=== PATIENT | female | born 1935 | race African-American/Black ===

== ENCOUNTER 2016-10-29 18:39 | Inpatient (IN) ==
[2016-10-29] MEDS ORDERED: ASPIRIN 325 MG TABLET PO STA (19:25)
--- NOTE | 2016-10-29 19:39 | Emergency Department Note ---
Nahun Shearer Gwan, am scribing for, and in the presence of, Alfonso Gray MD 19 :31. Isaac Shearer Charles R, MD, personally performed the services described in this documentation, ascribed by Jessica Garnica in my presence, and it is both accurate and complete 939 . Arrival - Arrival Chief Complaint: Arrhythmia/Palpitations Stated Complaint: low heart rate ED Nursing Triage Note: Pt c/o Low heart rate (40's) with dizziness since yesterday. Mode of Arrival: Wheelchair Limitations: No Limitations Source: Patient, Family, Old Records Reviewed, RN Notes Reviewed Time Seen by Provider: 10/29/16 19:19 - History of Present Illness HPI Narrative: Patient is a 81 y/o female who presents to the ED with a c/o bradycardia and dizziness with an onset 2 days ago. Patient stated that her Home Health Nurse noted that her elevated BP and bradycardia 2 days ago. Patient continued to note that she began to have SOB today and as she was getting out of the bath tub she began to have an unsteady gait and dizziness prompting her to alert family and report to ED for further evaluation. Patient confirmed that she is beign followed by Dr. Almaguer and Dr. Watson. While in ED, patient stated that she no longer is having sxs. No other problems/complaints reported in ED. Onset (ago): day(s) Consistency: constant Severity: moderate Allergies/Adverse Reactions: Allergies Allergy/AdvReac Type Severity Reaction Status Date / Time No Known Allergies Allergy Verified 06/07/14 06:19 Home Medications: Home Medications Medication Instructions Recorded Confirmed Type Amitriptyline [Elavil] 50 mg PO BEDTIME 06/06/14 10/29/16 History Aspirin [Ecotrin] 81 mg PO DAILY 06/06/14 10/29/16 History Atorvastatin [Lipitor] 10 mg PO DAILY 06/06/14 10/29/16 History Benazepril [Lotensin] 5 mg PO DAILY 06/06/14 10/29/16 History Bromfenac Sodium [Prolensa] 1.6 ml RIGHT EYE DAILY 06/06/14 10/29/16 History Carvedilol 6.25 mg PO BID 06/06/14 10/29/16 History Cyanocobalamin (Vitamin B-12) 1,000 mcg IM DIRECTED 06/06/14 10/29/16 History [Cyanocobalamin Injection] Famotidine 20 mg PO DAILY 06/06/14 10/29/16 History Furosemide 60 mg PO DAILY 06/06/14 10/29/16 History Insulin Glargine [Lantus] 15 unit SUBCUT BEDTIME 06/06/14 10/29/16 History Magnesium Oxide [Magnesium] 664 mg PO DAILY 06/06/14 10/29/16 History Meloxicam 7.5 mg PO DAILY 06/06/14 10/29/16 History Metformin HCl [Metformin HCl ER] 1,000 mg PO BID 06/06/14 10/29/16 History Potassium Chloride 10 meq PO BID 06/06/14 10/29/16 History Review of System - Review of System 12 point system: reviewed and no additional remarkable complaints except as stated - Review of System Constitutional: Absent: chills, fever Eyes: Absent: discharge, pain Head/Ears/Nose/Throat: Absent: earache, epistaxis Respiratory: Absent: cough, respiratory distress, wheezing Cardiovascular: Present: as per HPI, other (slow heart beat). Absent: chest pain Gastrointestinal: Absent: abdominal pain, nausea, vomiting Neurological: Present: as per HPI, abnormal gait. Absent: headache, weakness Medical,Surgical,& Family Hx - Medical History Cardio: History of: Hypertension Neurology: No history of: Seizures HEENT: History of: Eye Problem Endocrine: History of: Diabetes Mellitus (IDDM), Dyslipidemia Gastrointestinal: History of: GERD Musculoskeletal: History of: Musculoskeletal Problems (ARTHRITIS) Other: History of: Skin Problems (HX MOLE REMOVED) - Surgical History HEENT Surgeries: Surgical HX of: Eye Surgery (RT EYE CATARACT/FOR LT 06/07/14) Abdominal Surgeries: Surgical HX of: Cholecystectomy Reproductive Surgeries: Surgical HX of;: Breast Surgery (RT LUMPECTOMY) - Social History Smoking Status: Never smoker Exam Vital Signs: Vital Signs Temperature 96.9 F L 10/29/16 19:15 Pulse Rate 47 L 10/29/16 19:15 Respiratory Rate 18 10/29/16 20:16 Blood Pressure 171/61 10/29/16 19:15 O2 Sat by Pulse Oximetry 98 10/29/16 19:15 - General General appearance: alert, in no apparent distress - Head Head exam: Present: atraumatic, normocephalic - Eye Eye exam: Present: normal appearance, PERRL, EOMI - ENT ENT exam: Present: normal oropharynx, mucous membranes moist, TM's normal bilaterally, normal external ear exam - Neck Neck exam: Present: full ROM, trachea midline. Absent: tenderness - Chest Chest inspection: Present: symmetric chest wall rise. Absent: tenderness - Respiratory Respiratory exam: Present: normal lung sounds bilaterally. Absent: respiratory distress - Cardiovascular Cardiovascular exam: Present: normal rhythm, bradycardia, normal heart sounds. Absent: murmur - Abdominal Exam Abdominal exam: Present: soft, normal bowel sounds. Absent: distention, tenderness - Extremities Exam Extremities exam: Present: full ROM, other (+1 edema bilateral lower extremities ). Absent: tenderness - Back Exam Back exam: Present: full ROM. Absent: tenderness - Neurological Exam Neurological exam: Present: alert, oriented X3, CN II-XII intact. Absent: motor sensory deficit - Psychiatric Psychiatric exam: Present: normal affect, normal mood - Skin Skin exam: Present: warm, dry, intact, normal color Course - Consultations Consultation #1: Dr Hernandez will admit for Dr Watson Time: 22:37 Consultation #2: Review EKG with Dr. Francis diving coach institutional commodity analyst. He agreed patient is trending towards a third-degree heart block. Patient blood pressure is normal she is asymptomatic states we can put on telemetry patient most likely require a pacemaker Time: 22:37 Results - Labs CBC & BMP: 10/29/16 19:49 10/29/16 19:49 Lab Results: I have reviewed the patients labs Labs: Laboratory Tests 10/29/16 19:49 WBC 6.7 RBC 3.67 L Hgb 11.1 L Hct 33.9 L Plt Count 246 Laboratory Tests 10/29/16 10/29/16 10/29/16 19:49 19:49 20:00 INR 1.0 PT Patient/Control Mix 10.6 Magnesium 1.8 Free T4 0.98 Urine Opiates Screen Positive H Ur Barbiturates Screen Negative Ur Phencyclidine Scrn Negative U Amphetamine/Methamph Negative U Benzodiazepines Scrn Negative U Cocaine Metab Screen Negative U Cannabinoids Screen Negative Laboratory Tests 10/29/16 20:00 Urine pH 5.0 Ur Specific Remlap 1.005 Urine Urobilinogen 0.2 Urine Leukocytes Moderate H Urine RBC 7 Urine WBC 12 Ur Squamous Epith Cells Occasional Urine Bacteria Occasional Hyaline Casts 11 Urine Mucus Occasional Laboratory Tests 10/29/16 19:49 Sodium 142 Potassium 4.4 Chloride 105 Carbon Dioxide 33 H BUN 18 Creatinine 1.00 Troponin I 0.117 H Laboratory Tests 10/29/16 19:49 B-Natriuretic Peptide 273 H - Diagnostic Findings Procedure: Chest x-ray: report reviewed by me (1. Efko-du-qpgkaleg cardiomegly. 2. No active cardiopulmonary disease. ) Critical Care Time Critical Care Time: Yes Total Critical Care Time: 60 Disposition Clinical Impression: Palpitations, Bradycardia, Sick sinus syndrome, UTI (urinary tract infection), Elevated troponin, Possible third-degree heart block Case discussed with: patient, patient's family Disposition: Still a Patient Condition: Guarded Time of Disposition: 22:38
[2016-10-29] MEDS ORDERED: ASPIRIN 325 MG TABLET ONE (19:46)
[2016-10-29 20:01] LABS: Basophils % 0.6 % (0.0-0.8); Eosinophils # 0.4 10*3/uL (0.0-0.87); Eosinophils % 6.1 % (0.00-10.9); Hematocrit 33.9 VOL% (35.7-47.0); Hemoglobin 11.1 GM/DL (12.0-16.0); Immature Granulocytes % 0.1 %; Immature Granulocytes Absolute 0.01 #; Lymphocytes # 2.8 10*3/uL (1.4-4.0); Lymphocytes % 41.9 % (21.3-54.2); Mean Corpuscular HGB Conc 32.7 GM/DL (32-36); Mean Corpuscular Hemoglobin 30 PG (27-34); Mean Corpuscular Volume 92.4 FL (87-102); Mean Platelet Volume 10.4 FL (9.6-12.0); Monocytes # 0.5 10*3/uL (0.11-0.8); Monocytes % 7.3 % (1.7-12.7); Platelet Count 246 T/CUMM (130-400); Red Blood Count 3.67 MC/CUMM (3.8-5.5); Red Cell Distribution Width 13.2 % (9.3-17.3); White Blood Count 6.7 T/CUMM (4-12)
[2016-10-29 20:15] LABS: PT Patient Result 10.6 SECS
[2016-10-29 20:17] LABS: Barbiturates Screen,Urine Negative (Negative); Benzodiazepines Screen,Urine Negative (Negative); Cannabinoid Screen,Urine Negative (Negative); Opiate Screen,Urine Positive (Negative); Phencyclidine Screen,Urine Negative (Negative)
[2016-10-29 20:19] LABS: Apearance,Urine Clear (Clear); Bacteria,Urine Occasional /HPF (Few); Bilirubin,Urine Negative (Negative); Blood, Urine NEGATIVE (Negative); Glucose,Urine (UA) Negative (Negative); Hyaline Casts,Urine 11 /LPF (0-3); Ketones,Urine Negative (Negative); Mucus,Urine Occasional /LPF (Occasional); Nitrite,Urine Negative (Negative); Protein,Urine Negative; RBC,Urine 7 /HPF (0-4); Squamous Epithelial Cell,Urine Occasional /HPF (0-10); Urine Color Yellow (Yellow); Urine Specific Gravity 1.005 (1.001-1.035); Urine Urobilinogen 0.2 EU/DL (0.2-1.0); WBC,Urine 12 /HPF (0-6)
--- NOTE | 2016-10-29 20:19 | XRay Report ---
XR chest 1V portable Indication: Shortness of breath Comparison: None. Technique: Portable AP chest was performed. Findings: Ghtf-od-flwwsbzr cardiomegaly is demonstrated. Pulmonary vasculature is normal. Lungs are clear. Bones and soft tissues demonstrate no significant abnormalities. Impression: 1. Ekiv-sd-shlacyjp cardiomegaly. 2. No active cardiopulmonary disease. 10/29/2016 8:15 PM PROCEDURE INTERPRETED AT [facility] DEPARTMENT OF RADIOLOGY Final Report Signed by: Dr. Paramjit Reardon
[2016-10-29 20:21] LABS: Free T4 (Free Thyroxine) 0.98 NG/DL (0.76-1.46); Magnesium 1.8 MG/DL (1.8-2.4)
[2016-10-29 20:26] LABS: Albumin 3.6 G/DL (3.4-5.0); Bilirubin,Total 0.4 MG/DL (0.2-1.0); Calcium 9.1 MG/DL (8.5-10.1); Osmolality,Calculated 283.1 MOS/KG (273-304); Potassium 4.4 MMOL/L (3.5-5.1); Thyroid Stimulating Hormone 2.75 uIU/ml (0.358-3.74); Total Protein 6.4 G/DL (6.4-8.3)
[2016-10-29 20:34] LABS: Troponin I Only 0.117 NG/ML (0.00-0.045)
[2016-10-29] MEDS ORDERED: cefTRIAXone 1,000 MG in SODIUM CHLORIDE 0.9% 100 ML IV STA (21:59)
[2016-10-29] MEDS ORDERED: cefTRIAXone 1,000 MG VIAL ONE (22:13)
--- NOTE | 2016-10-30 02:32 | EKG Report ---
Stationary ECG Study [facility] ER Test Date: 10/29/2016 10:17:32 PM Pat Name: NABILA BLACK Department: Room: Gender: F Slurry Control Tender: : 1935 Requested by: Alfonso Galeano Order Number: [id number] Reading MD: MADAI MADRID Intervals [place] Rate: 34 P: 999 WI: 0 QRS: -71 QRSD: 189 T: -49 QT: 591 QTc: 488 Interpretive Statements SINUS RHYTHM WITH COMPLETE HEART BLOCK RIGHT BUNDLE BRANCH BLOCK LEFT ANTERIOR FASCICULAR BLOCK MODERATE T-WAVE ABNORMALITY Electronically Signed On 10-31-16 15:31:49 CDT by MADAI MADRID [email or web address]
[2016-10-30] MEDS ORDERED: MORPHINE 2 MG/1 ML SYRINGE IV PRN (03:19)
[2016-10-30] MEDS ORDERED: CYANOCOBALAMIN 1000 MCG/1 ML VIAL IM SCH (03:19)
[2016-10-30] MEDS ORDERED: GLUCAGON 1 MG VIAL IM PRN (03:19)
[2016-10-30] MEDS ORDERED: ACETAMINOPHEN 325 MG TABLET PO PRN (03:19)
[2016-10-30] MEDS ORDERED: DEXTROSE 50% 25 GM/50 ML VIAL IV PRN (03:19)
[2016-10-30] MEDS ORDERED: ONDANSETRON 4 MG/2 ML VIAL IV PRN (03:19)
[2016-10-30] MEDS ORDERED: SODIUM CHLORIDE 0.9% 1,000 ML IV SCH (03:19)
[2016-10-30] MEDS ORDERED: ENOXAPARIN 40 MG/0.4 ML SYRINGE ONE (07:46)
[2016-10-30] MEDS ORDERED: CYANOCOBALAMIN 1000 MCG/1 ML VIAL ONE (07:46)
[2016-10-30] MEDS ORDERED: ENOXAPARIN 40 MG/0.4 ML SYRINGE SUBCUT SCH (08:00)
[2016-10-30] MEDS: INSULIN REGULAR 100 UNIT/ML SUBCUT SCH ×4 (08:12→21:22)
--- NOTE | 2016-10-30 08:12 | EKG Report ---
Stationary ECG Study [facility] ER Test Date: 10/29/2016 6:47:23 PM Pat Name: NABILA BLACK Department: Room: Gender: F Credit Review Manager: Mat : 1935 Requested by: Alfonso Galeano Order Number: [id number] Reading MD: MADAI MADRID Intervals [place] Rate: 48 P: 37 SD: 169 QRS: -71 QRSD: 167 T: -41 QT: 517 QTc: 483 Interpretive Statements SINUS BRADYCARDIA RIGHT BUNDLE BRANCH BLOCK LEFT ANTERIOR FASCICULAR BLOCK T WAVE ABNORMALITY Electronically Signed On 10-31-16 15:26:22 CDT by MADAI MADRID [email or web address]
[2016-10-30 08:23] LABS: Basophils % 0.5 % (0.0-0.8); Eosinophils # 0.4 10*3/uL (0.0-0.87); Hematocrit 33.8 VOL% (35.7-47.0); Hemoglobin 11.2 GM/DL (12.0-16.0); Immature Granulocytes % 0.2 %; Immature Granulocytes Absolute 0.01 #; Lymphocytes # 2.5 10*3/uL (1.4-4.0); Lymphocytes % 39.7 % (21.3-54.2); Mean Corpuscular HGB Conc 33.1 GM/DL (32-36); Mean Corpuscular Hemoglobin 31 PG (27-34); Mean Corpuscular Volume 92.6 FL (87-102); Monocytes # 0.4 10*3/uL (0.11-0.8); Monocytes % 6.3 % (1.7-12.7); Neutrophils # 2.9 10*3/uL (1.4-7.4); Neutrophils % 47.3 % (38.7-73.9); Platelet Count 232 T/CUMM (130-400); Red Blood Count 3.65 MC/CUMM (3.8-5.5); Red Cell Distribution Width 13.2 % (9.3-17.3); White Blood Count 6.2 T/CUMM (4-12)
[2016-10-30] MEDS ORDERED: DIAZEPAM 5 MG TABLET PO ONE (08:54)
[2016-10-30] MEDS ORDERED: diphenhydrAMINE CAP 25 MG CAPSULE PO ONE (08:54)
[2016-10-30] MEDS ORDERED: ceFAZolin 1,000 MG VIAL IRRIG ONE (08:54)
[2016-10-30 08:57] LABS: Albumin 3.2 G/DL (3.4-5.0); Bilirubin,Total 0.5 MG/DL (0.2-1.0); Calcium 8.9 MG/DL (8.5-10.1); Magnesium 1.8 MG/DL (1.8-2.4); Osmolality,Calculated 283.1 MOS/KG (273-304); Potassium 4.5 MMOL/L (3.5-5.1); Risk Ratio 2.14; Total Protein 5.8 G/DL (6.4-8.3); VLDL CHOLESTEROL 13.6 MG/DL
[2016-10-30] MEDS ORDERED: MAGNESIUM SULF RIDER 2 GM in PREMIX 1 EACH IV PRN (08:57)
[2016-10-30] MEDS ORDERED: MAGNESIUM SULF RIDER 4 GM in PREMIX 1 EACH IV PRN (08:57)
[2016-10-30] MEDS ORDERED: BROMFENAC SODIUM RIGHT EYE SCH (09:00)
[2016-10-30] MEDS ORDERED: BENAZEPRIL 5 MG TABLET PO SCH (09:00)
--- NOTE | 2016-10-30 09:06 | Family Practice History&Phys ---
Assessment and Plan (1) Bradycardia Status: Acute Assessment and plan: Bradycardia/near syncope, cardiac in origin, cardiology consulted, Plan for pacemaker placement today 2. UTI, continue Macrobid day 1 today 3. Continued part of her home meds, 4. DM , stable , continue current regimen 5.HTN , bp stable, continue current antihypertensives, and as added by foot press operator 6. Dyslipidemia continue Lipitor Discharge plan : On 10/31/2016, to home with home health if stable Current Visit: Yes (2) Near syncope Status: Acute Current Visit: Yes (3) UTI (urinary tract infection) Status: Acute Current Visit: Yes (4) Diabetes Status: Chronic Current Visit: Yes Qualifiers: Diabetes mellitus type: type 2 (5) Dyslipidemia Status: Chronic Current Visit: Yes (6) Hypertension Status: Chronic Current Visit: Yes History of Present Illness Chief complaint: Dizziness, decreased heart rate, since 2-3 weeks History of present illness: Ms. Olmos is a 81 year old female PCP: Dr. liu, foot press operator: Dr. Almaguer Consultants on case : Junior Accountant Bookkeeper, History obtained from the patient, Came yesterday to the ER for dizziness, noticed low heart rate since 2-3 days. Has been having the current symptoms since 3 months, but got more since 2-3 weeks. And she could not bear the dizziness, since 2 days. She would feel dizzy on bending down, no recent fall with dizziness, no recent head injury. Also noted to have shortness of breath, fatigue on and off, with unsteady gait since 2-3 days. no fever , nausea, vomiting , chest pain ??, Mentions she takes her home medications compliantly, no history of alcohol, cigarette smoking, Has h/o DM, HTN , Hyperlipidemia,GERD, Has sta home health. Patient admitted for third degree heart block, bradycardia, placement of pacemaker if needed Home Medications Medication Instructions Recorded Confirmed Type Amitriptyline [Elavil] 50 mg PO BEDTIME 06/06/14 10/30/16 History Aspirin [Ecotrin] 81 mg PO DAILY 06/06/14 10/30/16 History Atorvastatin [Lipitor] 10 mg PO DAILY 06/06/14 10/30/16 History Benazepril [Lotensin] 5 mg PO DAILY 06/06/14 10/29/16 History Bromfenac Sodium [Prolensa] 1.6 ml RIGHT EYE DAILY 06/06/14 10/29/16 History Cyanocobalamin (Vitamin B-12) 1,000 mcg IM DIRECTED 06/06/14 10/29/16 History [Cyanocobalamin Injection] Famotidine 20 mg PO DAILY 06/06/14 10/30/16 History Furosemide 60 mg PO DAILY 06/06/14 10/30/16 History Insulin Glargine [Lantus] 15 unit SUBCUT BEDTIME 06/06/14 10/29/16 History Magnesium Oxide [Magnesium] 664 mg PO DAILY 06/06/14 10/29/16 History Meloxicam 15 mg PO DAILY 06/06/14 10/30/16 History Metformin HCl [Metformin HCl ER] 1,000 mg PO BID 06/06/14 10/30/16 History Potassium Chloride 10 meq PO BID 06/06/14 10/30/16 History Hydrocodone/Acetaminophen 1 tablet PO BID W/MEALS PRN 10/30/16 10/30/16 History [Hydrocodon-Acetaminophn 10-325] Methocarbamol [Methocarbamol] 750 mg PO Q8HR PRN 10/30/16 10/30/16 History Allergies Allergy/AdvReac Type Severity Reaction Status Date / Time No Known Allergies Allergy Verified 06/07/14 06:19 - Constitutional Constitutional: Present: as per HPI - EENT Eyes: Present: as per HPI - Cardiovascular Cardiovascular: Present: as per HPI - Respiratory Respiratory: Present: as per HPI - Gastrointestinal Gastrointestinal: Present: as per HPI - Genitourinary Genitourinary: Present: as per HPI - Musculoskeletal Musculoskeletal: Present: as per HPI - Neurological Neurological: Present: as per HPI - Psychiatric Psychiatric: Present: as per HPI - Endocrine Endocrine: Present: as per HPI - Hematologic/Lymphatic Hematologic/Lymphatic: Present: as per HPI Medical,Surgical,& Family Hx - Medical History Cardio: History of: Hypertension Neurology: No history of: Seizures HEENT: History of: Eye Problem Endocrine: History of: Diabetes Mellitus (IDDM), Dyslipidemia Gastrointestinal: History of: GERD Musculoskeletal: History of: Musculoskeletal Problems (ARTHRITIS) Other: History of: Skin Problems (HX MOLE REMOVED) - Surgical History HEENT Surgeries: Surgical HX of: Eye Surgery (RT EYE CATARACT/FOR LT 06/07/14) Abdominal Surgeries: Surgical HX of: Cholecystectomy Reproductive Surgeries: Surgical HX of;: Breast Surgery (RT LUMPECTOMY) - Social History Smoking Status: Never smoker Exam - Constitutional Vitals: Period Temp Pulse Resp BP Sys/Walsh Pulse Ox Last 24 Hr 96.9 F-96.9 F 35-47 18-18 123-171/50-61 98-99 Exam: Examination: Seen and examined in the ER, awaiting telemetry bed GENERAL: Alert, oriented, in no acute distress , elderly female pt, lying in the bed HEENT: normal, PERRLA. EOMI. Mucous membranes are moist. NECK: Neck is supple. No JVD. No carotid bruit. No thyromegaly. CVS: Bradycardia, heart rate ranging from 35-46 on the monitor, while in the exam room. S1 and S2 are normal. RESPIRATORY: Clear to ausculation bilaterally , No wheezes, rales or rhonchi. ABDOMEN: Soft and nontender. Bowel sounds are present. No hepatosplenomegaly. EXT: No edema. BRIDGE TENDER: Patient is awake, alert and oriented, Cranial nerves 2-12 grossly intact. Motor strength normal. Results - Labs CBC & BMP: 10/30/16 08:03 10/30/16 08:03
[2016-10-30] MEDS ORDERED: PANTOPRAZOLE 40 MG VIAL IV ONE (09:33)
[2016-10-30] MEDS: PANTOPRAZOLE 40 MG VIAL IV SCH (09:44)
--- NOTE | 2016-10-30 11:01 | Cardiology Consult Note ---
Assessment and Plan - Time spent with patient Time spent with patient: Greater than 30 minutes (1) Near syncope Status: Acute Assessment and plan: SEE PLAN OF CARE LISTED BELOW Current Visit: Yes (2) Hypertension Status: Chronic Assessment and plan: SEE PLAN OF CARE LISTED BELOW Current Visit: Yes (3) Third degree heart block Status: Acute Assessment and plan: SEE PLAN OF CARE LISTED BELOW Current Visit: Yes (4) Dyslipidemia Status: Chronic Assessment and plan: SEE PLAN OF CARE LISTED BELOW Current Visit: Yes (5) Diabetes Status: Chronic Assessment and plan: SEE PLAN OF CARE LISTED BELOW Current Visit: Yes (6) UTI (urinary tract infection) Status: Acute Assessment and plan: SEE PLAN OF CARE LISTED BELOW Current Visit: Yes History of Present Illness - Data of Consult Patient: known to practice within the last 3 years Consult date: 10/30/16 Requesting Physician: Irene Hernandez Primary care physician: Dileep Watson - Consult Narrative Reason for consult: complete heart block History of present illness: INVESTMENT COUNSELOR: DR. ALMAGUER PCP: DR. WATSON Ada Amarilis, 81BF, routinely followed by Dr. Almaguer. Last seen in cardiology clinic May 01, 2016. Risk factors include: Advanced age, hypertension, diabetes, dyslipidemia. Cardiolite stress test March 24, 2016: Suggestive of low to moderate risk, EF 45%. Echocardiogram May 01, 2016: EF 45 % to 55%, grade 1 diastolic dysfunction, mild to moderate MR, PAP 26 mmHg assuming RAP 3 mmHg. Trace to small pericardial effusion, 2+ upper septal thickness. Patient was referred to Dr. Almaguer for workup of syncope. From a neurological standpoint, no identifiable etiology was identified. Her cardiology studies were relatively normal as well. Over the past several weeks , home health has been monitoring her heart rate and found her to be significantly bradycardic. After she was assessed yesterday by her home health nurse, she was directed to the emergency department of [facility]. She was found to be in complete heart block and continues to remain in such rhythm. She had been taking Carvedilol however, this is been held and the rhythm still has not changed. Patient denies chest pain, heaviness, tightness. She does acknowledge that she has had dizziness, lightheadedness and fatigue worsening over the past several weeks. Particularly, dizziness in certain positions to the point where she feels significantly weak. No more syncope in several months. At this point, patient has been seen and evaluated by Dr. Valdez Francis. Family members are at the bedside. Ms. Olmos has been counseled regarding the need for dual chamber pacemaker to protect her from symptoms related to complete heart block. Ms. Olmos and her family are agreeable to proceed. Patient has had a light breakfast this morning and is currently NPO. Dr. Francis has discussed this case with Dr. Beverly who will be implanting pacemaker this afternoon. ASSESSMENT/PLAN: 1. COMPLETE HEART BLOCK - NPO for dual chamber pacemaker implantation today. TSH/T4 today 2. SYNCOPE/NEAR SYNCOPE - symptoms most likely related to #1 3. DIZZINESS - symptoms most likely related to #1 4. HYPERTENSION - adequately controlled, avoiding violeta blocking agents this morning but may reincorporate after pacemaker 5. DYSLIPIDEMIA - continue lipid-lowering agent, LDL in a.m. 6. DIABETES - continue with sliding scale coverage as needed. 7. UTI - Antibiotics. Macrobid until culture and sensitivity returns. CC: - Home Medications and Allergies Home Medications: Home Medications Medication Instructions Recorded Confirmed Type Amitriptyline [Elavil] 50 mg PO BEDTIME 06/06/14 10/29/16 History Aspirin [Ecotrin] 81 mg PO DAILY 06/06/14 10/29/16 History Atorvastatin [Lipitor] 10 mg PO DAILY 06/06/14 10/29/16 History Benazepril [Lotensin] 5 mg PO DAILY 06/06/14 10/29/16 History Bromfenac Sodium [Prolensa] 1.6 ml RIGHT EYE DAILY 06/06/14 10/29/16 History Carvedilol 6.25 mg PO BID 06/06/14 10/29/16 History Cyanocobalamin (Vitamin B-12) 1,000 mcg IM DIRECTED 06/06/14 10/29/16 History [Cyanocobalamin Injection] Famotidine 20 mg PO DAILY 06/06/14 10/29/16 History Furosemide 60 mg PO DAILY 06/06/14 10/29/16 History Insulin Glargine [Lantus] 15 unit SUBCUT BEDTIME 06/06/14 10/29/16 History Magnesium Oxide [Magnesium] 664 mg PO DAILY 06/06/14 10/29/16 History Meloxicam 7.5 mg PO DAILY 06/06/14 10/29/16 History Metformin HCl [Metformin HCl ER] 1,000 mg PO BID 06/06/14 10/29/16 History Potassium Chloride 10 meq PO BID 06/06/14 10/29/16 History Allergies/Adverse Reactions: Allergies Allergy/AdvReac Type Severity Reaction Status Date / Time No Known Allergies Allergy Verified 06/07/14 06:19 Review of systems: REVIEW OF SYSTEMS: - Constitutional Constitutional: Present: Fatigue, history of syncope. Near syncope, lightheadedness and dizziness. - EENT Eyes: Absent: blurry vision, loss of vision, diplopia Ears: Absent: decreased hearing, ear pain, ear discharge - Cardiovascular Cardiovascular: Denies: chest pain with exertion, dyspnea on exertion, edema, palpitations. Absent: chest pain with deep breath, claudication - Respiratory Respiratory: Denies ARMAS, cough. Absent: wheezing, hemoptysis, change in phlegm color - Gastrointestinal Gastrointestinal: Denies: constipation. Absent: abdominal pain, hematemesis, hematochezia, melena, change in bowel habits, nausea - Genitourinary Genitourinary: Absent: difficulty urinating, dysuria, urinary hesitancy, flank pain - Musculoskeletal Musculoskeletal: Present: back pain Absent: joint swelling, muscle cramps, muscle weakness - Neurological Neurological: Present: normal gait without frequent falls. Absent: dizziness, hemiparesis - Psychiatric Psychiatric: Absent: anxiety, depression, difficulty concentrating - Endocrine Endocrine: Present: fatigue. Absent: cold intolerance, heat intolerance, polyuria, polyphagia, polydipsia - Hematologic/Lymphatic Hematologic/Lymphatic: Present: easy bruising. Absent: easy bleeding -Integumentary Integumentary: Absent: lesions, rashes, skin breakdown Medical,Surgical,& Family Hx - Medical History Cardio: History of: Hypertension No history of: CAD, [place] Neurology: No history of: Seizures HEENT: History of: Eye Problem Endocrine: History of: Diabetes Mellitus (IDDM), Dyslipidemia Gastrointestinal: History of: GERD Musculoskeletal: History of: Musculoskeletal Problems (ARTHRITIS) Other: History of: Skin Problems (HX MOLE REMOVED) - Surgical History HEENT Surgeries: Surgical HX of: Eye Surgery (RT EYE CATARACT/FOR LT 06/07/14) Abdominal Surgeries: Surgical HX of: Cholecystectomy Reproductive Surgeries: Surgical HX of;: Breast Surgery (RT LUMPECTOMY) - Social History Smoking Status: Never smoker Have you smoked in the last 12 months: No Frequency of Alcohol Use: None Type of Drug Use: None Physical Examination Vital Signs Temp Pulse Resp BP Pulse Ox 96.9 F L 47 L 18 171/61 99 10/29/16 18:43 10/29/16 18:43 10/29/16 18:43 10/29/16 18:43 10/29/16 18:43 Exam: General: [Appears well with no apparent distress.] [Pleasant and cooperative. ] [Appears comfortable.] HEENT: [Bilateral arcus, normocephalic, atraumatic. Mucous membranes moist. No jaundice noted. Conjunctiva moist and clear, sclerae anicteric] Neck: No JVD/HJR, no thyromegaly or lymphadenopathy noted. No carotid bruit appreciated Cardiac: [Slow rate and rhythm.] [No murmur rub or gallop.] Lungs: [Clear to auscultation without accessory muscle use to assist the respiratory pattern.] Not requiring oxygen Abdomen: Soft, bowel sounds normoactive. Nontender and nondistended. No abdominal bruit or thrill noted. No masses noted. Musculoskeletal: No fluid collection. Decreased range of motion is noted. Extremities: No clubbing, cyanosis noted. [Trace bilateral lower extremity edema noted.] Upper extremity pulses 2+. Lower extremity pulses 2+. Capillary refill less than 3 seconds. Skin: No unusual lesions or rashes. No skin breakdown appreciated. Neuro: Awake, alert and oriented 3. Moves all extremities well without hemiparesis or paralysis. No essential tremor is appreciated. Result/EKG - Labs CBC & BMP: 10/30/16 08:03 10/30/16 08:03 Lab Results: I have reviewed the past 24 hour labs Labs: Laboratory Results - last 24 hr 10/29/16 10/29/16 10/29/16 19:49 19:49 19:49 WBC RBC Hgb Hct MCV MCH MCHC RDW Plt Count MPV Neut % (Auto) Lymph % (Auto) [place] % (Auto) Eos % (Auto) Baso % (Auto) Neut # (Auto) Lymph # (Auto) [place] # (Auto) Eos # (Auto) Baso # (Auto) Immature Gran % Nucleated RBC % Immature Gran # Nucleated RBCs # Immature Plt Fraction INR 1.0 PT Patient/Control Mix 10.6 Sodium Potassium Chloride Carbon Dioxide Anion Gap BUN Creatinine GFR Calculation BUN/Creatinine Ratio Glucose POC Glucose Calculated Osmolality Calcium Magnesium 1.8 Total Bilirubin AST ALT Alkaline Phosphatase Troponin I B-Natriuretic Peptide 273 H Total Protein Albumin Globulin Albumin/Globulin Ratio Triglycerides Cholesterol LDL Cholesterol VLDL Cholesterol HDL Cholesterol Heart Disease Risk Ratio Free T4 0.98 TSH 3rd Generation Urine Color Urine Appearance Urine pH Ur Specific [place] Urine Protein Urine Glucose (UA) Urine Ketones Urine Blood Urine Nitrate Urine Bilirubin Urine Urobilinogen Urine Leukocytes Urine RBC Urine WBC Ur Squamous Epith Cells Urine Bacteria Hyaline Casts Urine Mucus Ur Culture Indicated? Urine Opiates Screen Ur Barbiturates Screen Ur Phencyclidine Scrn U Amphetamine/Methamph U Benzodiazepines Scrn U Cocaine Metab Screen U Cannabinoids Screen 10/29/16 10/29/16 10/29/16 19:49 19:49 20:00 WBC 6.7 RBC 3.67 L Hgb 11.1 L Hct 33.9 L MCV 92.4 MCH 30 MCHC 32.7 RDW 13.2 Plt Count 246 MPV 10.4 Neut % (Auto) 44.0 Lymph % (Auto) 41.9 [place] % (Auto) 7.3 Eos % (Auto) 6.1 Baso % (Auto) 0.6 Neut # (Auto) 3.0 Lymph # (Auto) 2.8 [place] # (Auto) 0.5 Eos # (Auto) 0.4 Baso # (Auto) 0.0 Immature Gran % 0.1 Nucleated RBC % 0.0 Immature Gran # 0.01 Nucleated RBCs # 0.00 Immature Plt Fraction 2.4 INR PT Patient/Control Mix Sodium 142 Potassium 4.4 Chloride 105 Carbon Dioxide 33 H Anion Gap 8.4 BUN 18 Creatinine 1.00 GFR Calculation 68 BUN/Creatinine Ratio 18.00 Glucose 80 POC Glucose Calculated Osmolality 283.1 Calcium 9.1 Magnesium Total Bilirubin 0.40 AST 11 ALT 18 Alkaline Phosphatase 100 Troponin I 0.117 H B-Natriuretic Peptide Total Protein 6.4 Albumin 3.6 Globulin 2.8 Albumin/Globulin Ratio 1.2 Triglycerides Cholesterol LDL Cholesterol VLDL Cholesterol HDL Cholesterol Heart Disease Risk Ratio Free T4 TSH 3rd Generation 2.750 Urine Color Urine Appearance Urine pH Ur Specific [place] Urine Protein Urine Glucose (UA) Urine Ketones Urine Blood Urine Nitrate Urine Bilirubin Urine Urobilinogen Urine Leukocytes Urine RBC Urine WBC Ur Squamous Epith Cells Urine Bacteria Hyaline Casts Urine Mucus Ur Culture Indicated? Urine Opiates Screen Positive H Ur Barbiturates Screen Negative Ur Phencyclidine Scrn Negative U Amphetamine/Methamph Negative U Benzodiazepines Scrn Negative U Cocaine Metab Screen Negative U Cannabinoids Screen Negative 10/29/16 10/30/16 10/30/16 20:00 04:33 08:02 WBC RBC Hgb Hct MCV MCH MCHC RDW Plt Count MPV Neut % (Auto) Lymph % (Auto) [place] % (Auto) Eos % (Auto) Baso % (Auto) Neut # (Auto) Lymph # (Auto) [place] # (Auto) Eos # (Auto) Baso # (Auto) Immature Gran % Nucleated RBC % Immature Gran # Nucleated RBCs # Immature Plt Fraction INR PT Patient/Control Mix Sodium Potassium Chloride Carbon Dioxide Anion Gap BUN Creatinine GFR Calculation BUN/Creatinine Ratio Glucose POC Glucose 98 104 Calculated Osmolality Calcium Magnesium Total Bilirubin AST ALT Alkaline Phosphatase Troponin I B-Natriuretic Peptide Total Protein Albumin Globulin Albumin/Globulin Ratio Triglycerides Cholesterol LDL Cholesterol VLDL Cholesterol HDL Cholesterol Heart Disease Risk Ratio Free T4 TSH 3rd Generation Urine Color Yellow Urine Appearance Clear Urine pH 5.0 Ur Specific [place] 1.005 Urine Protein Negative Urine Glucose (UA) Negative Urine Ketones Negative Urine Blood Negative Urine Nitrate Negative Urine Bilirubin Negative Urine Urobilinogen 0.2 Urine Leukocytes Moderate H Urine RBC 7 Urine WBC 12 Ur Squamous Epith Cells Occasional Urine Bacteria Occasional Hyaline Casts 11 Urine Mucus Occasional Ur Culture Indicated? Results to follow Urine Opiates Screen Ur Barbiturates Screen Ur Phencyclidine Scrn U Amphetamine/Methamph U Benzodiazepines Scrn U Cocaine Metab Screen U Cannabinoids Screen 10/30/16 10/30/16 10/30/16 08:03 08:03 08:03 WBC 6.2 RBC 3.65 L Hgb 11.2 L Hct 33.8 L MCV 92.6 MCH 31 MCHC 33.1 RDW 13.2 Plt Count 232 MPV 10.0 Neut % (Auto) 47.3 Lymph % (Auto) 39.7 [place] % (Auto) 6.3 Eos % (Auto) 6.0 Baso % (Auto) 0.5 Neut # (Auto) 2.9 Lymph # (Auto) 2.5 [place] # (Auto) 0.4 Eos # (Auto) 0.4 Baso # (Auto) 0.0 Immature Gran % 0.2 Nucleated RBC % 0.0 Immature Gran # 0.01 Nucleated RBCs # 0.00 Immature Plt Fraction 0.0 INR PT Patient/Control Mix Sodium 142 Potassium 4.5 Chloride 104 Carbon Dioxide 33 H Anion Gap 9.5 BUN 16 Creatinine 0.70 GFR Calculation 104 BUN/Creatinine Ratio 22.00 H Glucose 96 POC Glucose Calculated Osmolality 283.1 Calcium 8.9 Magnesium 1.8 Total Bilirubin 0.50 AST 11 ALT 13 Alkaline Phosphatase 98 Troponin I B-Natriuretic Peptide 298 H Total Protein 5.8 L Albumin 3.2 L Globulin 2.6 Albumin/Globulin Ratio 1.2 Triglycerides 68 Cholesterol 105 LDL Cholesterol 48.0 VLDL Cholesterol 13.6 HDL Cholesterol 49 Heart Disease Risk Ratio 2.14 Free T4 TSH 3rd Generation Urine Color Urine Appearance Urine pH Ur Specific [place] Urine Protein Urine Glucose (UA) Urine Ketones Urine Blood Urine Nitrate Urine Bilirubin Urine Urobilinogen Urine Leukocytes Urine RBC Urine WBC Ur Squamous Epith Cells Urine Bacteria Hyaline Casts Urine Mucus Ur Culture Indicated? Urine Opiates Screen Ur Barbiturates Screen Ur Phencyclidine Scrn U Amphetamine/Methamph U Benzodiazepines Scrn U Cocaine Metab Screen U Cannabinoids Screen - Diagnostic Findings Procedure: Chest x-ray: report reviewed by me - EKG EKG results: interpreted by me EKG shows: bradycardia (Third-degree heart block)
[2016-10-30] MEDS: ASPIRIN EC 81 MG TABLET PO SCH (12:30)
[2016-10-30 13:18] LABS: Troponin I Only 0.146 NG/ML (0.00-0.045)
--- NOTE | 2016-10-30 14:16 | ECHO Report ---
Xochitl Olmos Exam Date: 10/30/2016 12:49 Referring Physician: Technologist: Kourtney Chavez LRDENEEN Age: 81 Ht (in): 63 Wt (lb): 191 Gender: F Exam Location: [facility] Echo Indications: a fib, HTN, 3degree heart block, near syncope, dyslipidemia, DM, UTI BP: 142 / 65 HR: 35 Rhythm: bradycardia Technical Quality: IMPRESSIONS Left ventricular ejection fraction is estimated at 45-50% Mildly thickened mitral valve with trace mitral regurgitation. Trace tricuspid valve regurgitation. MEASUREMENTS (Male / Female) Normal Values 2D ECHO LV Diastolic Diameter PLAX 4.9 cm 4.2 - 5.9 / 3.9 - 5.3 cm LV Systolic Diameter PLAX 3.3 cm LV Fractional Shortening PLAX 31.6 % IVS Diastolic Thickness 1.6 cm 0.6 - 1.0 / 0.6 - 0.9 cm LVPW Diastolic Thickness 1.4 cm 0.6 - 1.0 / 0.6 - 0.9 cm Aortic Root Diameter 2.7 cm LA Systolic Diameter LX 3.4 cm 3.0 - 4.0 / 2.7 - 3.8 cm DOPPLER TR Peak Velocity 281.0 cm/s TR Peak Gradient 31.6 mmHg FINDINGS Left Ventricle Normal left ventricular cavity size. Mild concentric left ventricular hypertrophy. Left ventricular ejection fraction is estimated at 45-50%. Right Ventricle Normal right ventricular size. Right Atrium Normal right atrial size. Left Atrium Normal left atrial size. Mitral Valve Mildly thickened mitral valve with trace mitral regurgitation. Aortic Valve The aortic valve is trileaflet and has normal motion. Tricuspid Valve Morphologically normal tricuspid valve. Trace tricuspid valve regurgitation. Tricuspid regurgitation velocities suggest a PAP of 31.6 mmHg + RAP. Pulmonic Valve Morphologically normal pulmonic valve. Trace pulmonary valve regurgitation. Pericardium No pericardial effusion. Aorta Normal size aortic root and proximal ascending aorta. Valdez Francis (Electronically Signed) Final Date: 30 October 2016 14:15
[2016-10-30] MEDS: DOCUSATE SODIUM 100 MG CAPSULE PO SCH ×2 (15:55→21:22)
[2016-10-30] MEDS: POTASSIUM CHLORIDE 10 MEQ TABLET PO SCH ×2 (15:55→21:21)
[2016-10-30] MEDS: ATORVASTATIN 10 MG TABLET PO SCH (15:55)
[2016-10-30] MEDS: FUROSEMIDE 20 MG TABLET PO SCH (15:55)
[2016-10-30] MEDS: FAMOTIDINE 20 MG TABLET PO SCH (15:56)
[2016-10-30] MEDS: MELOXICAM 7.5 MG TABLET PO SCH (15:56)
[2016-10-30] MEDS: BENAZEPRIL 10 MG TABLET PO SCH (15:56)
[2016-10-30] MEDS ORDERED: LIDOCAINE 1% 20 ML VIAL ONE (16:05)
[2016-10-30] MEDS ORDERED: HEPARIN/NACL 0.9% 2 UNITS/ML 500 ML IV ONE (16:05)
[2016-10-30] MEDS ORDERED: fentaNYL 100 MCG/2 ML VIAL ONE (16:05)
[2016-10-30] MEDS ORDERED: MIDAZOLAM 2 MG/2 ML VIAL ONE (16:06)
[2016-10-30] MEDS ORDERED: ceFAZolin 1,000 MG VIAL ONE (16:06)
[2016-10-30] MEDS ORDERED: TISSUE ADHESIVE 1 EACH APPLICATOR TOP ONE (16:06)
--- NOTE | 2016-10-30 16:20 | History and Physical Update ---
Sedation H&P Update - History and Physical H&P was reviewed, the patient examined and there: are no changes in the patients condition since last H&P was completed. - Dictation Physical: refer to H&P completed by admitting physician - Physical Exam Mental Status: alert and oriented Heart: other (CHB and HR 41 ventricular escape rhythm) Lung: clear to auscultation Abdomen: within normal limits Vitals: within normal limits - Sedation Plan for Sedation: moderate Patient Consent: Procedure disscussed with patient and patinet has consented., Risks and benefits were discussed with patient,including infection,, bleeding, injury to surrounding structures, seizure, temporary nerve, Patient understands and accepts potential risks/benefits and agrees to, proceed. ASA Class: IV Airway Assessment: Class II: Soft palate, uvula, fauces visible
--- NOTE | 2016-10-30 16:31 | Discharge Summary ---
Hospital Course - Hospital Course Hospital Course: PCP: Dr. watson, inventory accountant: Dr. Almaguer,Last seen in cardiology clinic May 01, 2016 Consultants on case : Elevator Repairer Helper, Has h/o DM, HTN , Hyperlipidemia,GERD,Has sta home health Pt came to the ER on 10/29/16, for dizziness, feeling unsteady and feeling her HR dropping, also noted by HH nurse since 2 days prior to admission, Patient denied chest pain, heaviness, . Patient admitted for third degree heart block, bradycardia, Elevator Repairer Helper section maintainer was consulted,routine blood work, along with cardiac workup was done, BNP was 273, Thyroid test WNL, serial EKGs, and troponins were followed, dual-chamber pacemaker was placed on 10/31/16. pt tolerated the procedure well, Device was interrogated and found to be working appropriately prior to discharge. Found to have UTI while inpatient, macrobid added and continued after discharge, PCP, inventory accountant appts made, instructions given to the pt , RTC or ER as needed , Diagnosis - Discharge Diagnosis (1) Bradycardia Status: Resolved (2) Near syncope Status: Resolved (3) UTI (urinary tract infection) Status: Acute (4) Diabetes Status: Chronic (5) Dyslipidemia Status: Chronic (6) Hypertension Status: Chronic Specialty Discharge - Follow Up or Referrals Follow up with: Jacky Almaguer MD [Physician] - 12/01/16 9:40 am (1 month) Dileep Watson MD [Physician] - 11/14/16 9:00 am (on macrobid for UTI, urine cx pending ) Justine Bennett DO [Physician] - 11/07/16 8:00 am (BMP, magnesium, CBC. And device interrogation) Discharge Plan - Discharge Data Disposition: Home Health Service Condition at Discharge: Stable Discharge Diet: diabetic diet, heart healthy, low salt diet Activity: resume usual activities as tolerated, other (wear shoulder immobiliser , left, till she f/u with ) - Discharge Medications New Nitrofurantoin Macro/[place] [Macrobid] 100 mg PO BID #18 capsule Metoprolol Succinate Xl [Toprol Xl] 25 mg PO DAILY #30 tablet Continue Furosemide 60 mg PO DAILY Metformin HCl [Metformin HCl ER] 1,000 mg PO BID Aspirin [Ecotrin] 81 mg PO DAILY Atorvastatin [Lipitor] 10 mg PO DAILY Potassium Chloride 10 meq PO BID Amitriptyline [Elavil] 50 mg PO BEDTIME Benazepril [Lotensin] 5 mg PO DAILY Famotidine 20 mg PO DAILY Meloxicam 15 mg PO DAILY Magnesium Oxide [Magnesium] 664 mg PO DAILY Insulin Glargine [Lantus] 15 unit SUBCUT BEDTIME Bromfenac Sodium [Prolensa] 1.6 ml RIGHT EYE DAILY Cyanocobalamin (Vitamin B-12) [Cyanocobalamin Injection] 1,000 mcg IM DIRECTED Methocarbamol 750 mg PO Q8HR PRN PRN Reason: Pain Hydrocodone/Acetaminophen [Hydrocodon-Acetaminophn 10-325] 1 tablet PO BID W/ MEALS PRN PRN Reason: Pain - Follow Up or Referral Follow Up: Jacky Almaguer MD [Physician] - 12/01/16 9:40 am (1 month) Dileep Watson MD [Physician] - 11/14/16 9:00 am (on macrobid for UTI, urine cx pending ) Justine Bennett DO [Physician] - 11/07/16 8:00 am (BMP, magnesium, CBC. And device interrogation) - Forms/Instructions Instructions: Pacemaker (DC) Exam - Constitutional Vitals: Period Temp Pulse Resp BP Sys/Walsh Pulse Ox Last 24 Hr 96.9 F-97.6 F 35-47 18-18 123-171/50-65 98-100 Exam: Examination: GENERAL: Alert, oriented, in no acute distress , elderly female pt, sitting up at the side of the bed HEENT: normal, PERRLA. EOMI. Mucous membranes are moist. NECK: Neck is supple. No JVD. No carotid bruit. No thyromegaly. CVS: regular rhythm and rate, S1 and S2 are normal. RESPIRATORY: Clear to ausculation bilaterally , No wheezes, rales or rhonchi. ABDOMEN: Soft and nontender. Bowel sounds are present. No hepatosplenomegaly. EXT: No edema. LOSS PREVENTION AUDITOR: Patient is awake, alert and oriented, Cranial nerves 2-12 grossly intact. Motor strength normal. Discharge Results Procedures and tests throughout hospitalization: Pending Orders 10/29/16 Urine Culture Routine 10/30/16 04:00 Urinalysis 10/30/16 16:06 CL pacemaker Routine 10/30/16 19:15 Troponin,CKMB & Ck Total Q8H 10/31/16 03:15 Troponin,CKMB & Ck Total Q8H 10/31/16 04:00 Comp Blood Count Auto Diff IN AM Magnesium IN AM Labs on day of discharge: Labs from last 24 hours 10/30/16 10/30/16 10/30/16 12:34 12:30 11:54 WBC RBC Hgb Hct MCV MCH MCHC RDW Plt Count MPV Neut % (Auto) Lymph % (Auto) [place] % (Auto) Eos % (Auto) Baso % (Auto) Neut # (Auto) Lymph # (Auto) [place] # (Auto) Eos # (Auto) Baso # (Auto) Immature Gran % Nucleated RBC % Immature Gran # Nucleated RBCs # Immature Plt Fraction INR PT Patient/Control Mix Sodium Potassium Chloride Carbon Dioxide Anion Gap BUN Creatinine GFR Calculation BUN/Creatinine Ratio Glucose POC Glucose 150 H 168 H Calculated Osmolality Calcium Magnesium Total Bilirubin AST ALT Alkaline Phosphatase Total Creatine Kinase 58 CK-MB (CK-2) < 1.0 Troponin I 0.146 H D B-Natriuretic Peptide Total Protein Albumin Globulin Albumin/Globulin Ratio Triglycerides Cholesterol LDL Cholesterol VLDL Cholesterol HDL Cholesterol Heart Disease Risk Ratio Free T4 TSH 3rd Generation Urine Color Urine Appearance Urine pH Ur Specific [place] Urine Protein Urine Glucose (UA) Urine Ketones Urine Blood Urine Nitrate Urine Bilirubin Urine Urobilinogen Urine Leukocytes Urine RBC Urine WBC Ur Squamous Epith Cells Urine Bacteria Hyaline Casts Urine Mucus Ur Culture Indicated? Urine Opiates Screen Ur Barbiturates Screen Ur Phencyclidine Scrn U Amphetamine/Methamph U Benzodiazepines Scrn U Cocaine Metab Screen U Cannabinoids Screen 10/30/16 10/30/16 10/30/16 08:03 08:03 08:03 WBC 6.2 RBC 3.65 L Hgb 11.2 L Hct 33.8 L MCV 92.6 MCH 31 MCHC 33.1 RDW 13.2 Plt Count 232 MPV 10.0 Neut % (Auto) 47.3 Lymph % (Auto) 39.7 [place] % (Auto) 6.3 Eos % (Auto) 6.0 Baso % (Auto) 0.5 Neut # (Auto) 2.9 Lymph # (Auto) 2.5 [place] # (Auto) 0.4 Eos # (Auto) 0.4 Baso # (Auto) 0.0 Immature Gran % 0.2 Nucleated RBC % 0.0 Immature Gran # 0.01 Nucleated RBCs # 0.00 Immature Plt Fraction 0.0 INR PT Patient/Control Mix Sodium 142 Potassium 4.5 Chloride 104 Carbon Dioxide 33 H Anion Gap 9.5 BUN 16 Creatinine 0.70 GFR Calculation 104 BUN/Creatinine Ratio 22.00 H Glucose 96 POC Glucose Calculated Osmolality 283.1 Calcium 8.9 Magnesium 1.8 Total Bilirubin 0.50 AST 11 ALT 13 Alkaline Phosphatase 98 Total Creatine Kinase CK-MB (CK-2) Troponin I B-Natriuretic Peptide 298 H Total Protein 5.8 L Albumin 3.2 L Globulin 2.6 Albumin/Globulin Ratio 1.2 Triglycerides 68 Cholesterol 105 LDL Cholesterol 48.0 VLDL Cholesterol 13.6 HDL Cholesterol 49 Heart Disease Risk Ratio 2.14 Free T4 TSH 3rd Generation Urine Color Urine Appearance Urine pH Ur Specific [place] Urine Protein Urine Glucose (UA) Urine Ketones Urine Blood Urine Nitrate Urine Bilirubin Urine Urobilinogen Urine Leukocytes Urine RBC Urine WBC Ur Squamous Epith Cells Urine Bacteria Hyaline Casts Urine Mucus Ur Culture Indicated? Urine Opiates Screen Ur Barbiturates Screen Ur Phencyclidine Scrn U Amphetamine/Methamph U Benzodiazepines Scrn U Cocaine Metab Screen U Cannabinoids Screen 10/30/16 10/30/16 10/29/16 08:02 04:33 20:00 WBC RBC Hgb Hct MCV MCH MCHC RDW Plt Count MPV Neut % (Auto) Lymph % (Auto) [place] % (Auto) Eos % (Auto) Baso % (Auto) Neut # (Auto) Lymph # (Auto) [place] # (Auto) Eos # (Auto) Baso # (Auto) Immature Gran % Nucleated RBC % Immature Gran # Nucleated RBCs # Immature Plt Fraction INR PT Patient/Control Mix Sodium Potassium Chloride Carbon Dioxide Anion Gap BUN Creatinine GFR Calculation BUN/Creatinine Ratio Glucose POC Glucose 104 98 Calculated Osmolality Calcium Magnesium Total Bilirubin AST ALT Alkaline Phosphatase Total Creatine Kinase CK-MB (CK-2) Troponin I B-Natriuretic Peptide Total Protein Albumin Globulin Albumin/Globulin Ratio Triglycerides Cholesterol LDL Cholesterol VLDL Cholesterol HDL Cholesterol Heart Disease Risk Ratio Free T4 TSH 3rd Generation Urine Color Yellow Urine Appearance Clear Urine pH 5.0 Ur Specific [place] 1.005 Urine Protein Negative Urine Glucose (UA) Negative Urine Ketones Negative Urine Blood Negative Urine Nitrate Negative Urine Bilirubin Negative Urine Urobilinogen 0.2 Urine Leukocytes Moderate H Urine RBC 7 Urine WBC 12 Ur Squamous Epith Cells Occasional Urine Bacteria Occasional Hyaline Casts 11 Urine Mucus Occasional Ur Culture Indicated? Results to follow Urine Opiates Screen Ur Barbiturates Screen Ur Phencyclidine Scrn U Amphetamine/Methamph U Benzodiazepines Scrn U Cocaine Metab Screen U Cannabinoids Screen 10/29/16 10/29/16 10/29/16 20:00 19:49 19:49 WBC 6.7 RBC 3.67 L Hgb 11.1 L Hct 33.9 L MCV 92.4 MCH 30 MCHC 32.7 RDW 13.2 Plt Count 246 MPV 10.4 Neut % (Auto) 44.0 Lymph % (Auto) 41.9 [place] % (Auto) 7.3 Eos % (Auto) 6.1 Baso % (Auto) 0.6 Neut # (Auto) 3.0 Lymph # (Auto) 2.8 [place] # (Auto) 0.5 Eos # (Auto) 0.4 Baso # (Auto) 0.0 Immature Gran % 0.1 Nucleated RBC % 0.0 Immature Gran # 0.01 Nucleated RBCs # 0.00 Immature Plt Fraction 2.4 INR PT Patient/Control Mix Sodium 142 Potassium 4.4 Chloride 105 Carbon Dioxide 33 H Anion Gap 8.4 BUN 18 Creatinine 1.00 GFR Calculation 68 BUN/Creatinine Ratio 18.00 Glucose 80 POC Glucose Calculated Osmolality 283.1 Calcium 9.1 Magnesium Total Bilirubin 0.40 AST 11 ALT 18 Alkaline Phosphatase 100 Total Creatine Kinase CK-MB (CK-2) Troponin I 0.117 H B-Natriuretic Peptide Total Protein 6.4 Albumin 3.6 Globulin 2.8 Albumin/Globulin Ratio 1.2 Triglycerides Cholesterol LDL Cholesterol VLDL Cholesterol HDL Cholesterol Heart Disease Risk Ratio Free T4 TSH 3rd Generation 2.750 Urine Color Urine Appearance Urine pH Ur Specific [place] Urine Protein Urine Glucose (UA) Urine Ketones Urine Blood Urine Nitrate Urine Bilirubin Urine Urobilinogen Urine Leukocytes Urine RBC Urine WBC Ur Squamous Epith Cells Urine Bacteria Hyaline Casts Urine Mucus Ur Culture Indicated? Urine Opiates Screen Positive H Ur Barbiturates Screen Negative Ur Phencyclidine Scrn Negative U Amphetamine/Methamph Negative U Benzodiazepines Scrn Negative U Cocaine Metab Screen Negative U Cannabinoids Screen Negative 10/29/16 10/29/16 10/29/16 19:49 19:49 19:49 WBC RBC Hgb Hct MCV MCH MCHC RDW Plt Count MPV Neut % (Auto) Lymph % (Auto) [place] % (Auto) Eos % (Auto) Baso % (Auto) Neut # (Auto) Lymph # (Auto) [place] # (Auto) Eos # (Auto) Baso # (Auto) Immature Gran % Nucleated RBC % Immature Gran # Nucleated RBCs # Immature Plt Fraction INR 1.0 PT Patient/Control Mix 10.6 Sodium Potassium Chloride Carbon Dioxide Anion Gap BUN Creatinine GFR Calculation BUN/Creatinine Ratio Glucose POC Glucose Calculated Osmolality Calcium Magnesium 1.8 Total Bilirubin AST ALT Alkaline Phosphatase Total Creatine Kinase CK-MB (CK-2) Troponin I B-Natriuretic Peptide 273 H Total Protein Albumin Globulin Albumin/Globulin Ratio Triglycerides Cholesterol LDL Cholesterol VLDL Cholesterol HDL Cholesterol Heart Disease Risk Ratio Free T4 0.98 TSH 3rd Generation Urine Color Urine Appearance Urine pH Ur Specific [place] Urine Protein Urine Glucose (UA) Urine Ketones Urine Blood Urine Nitrate Urine Bilirubin Urine Urobilinogen Urine Leukocytes Urine RBC Urine WBC Ur Squamous Epith Cells Urine Bacteria Hyaline Casts Urine Mucus Ur Culture Indicated? Urine Opiates Screen Ur Barbiturates Screen Ur Phencyclidine Scrn U Amphetamine/Methamph U Benzodiazepines Scrn U Cocaine Metab Screen U Cannabinoids Screen Preliminary micro results at discharge 10/29/16 Unknown Urine Culture - Preliminary Urine,Voided No Growth at 12 hours. - Imaging and Cardiology Cardiology Procedure: report reviewed by me DS: Provider Date of admission: 10/30/16 08:57 Primary care physician: . No PCP Attending physician on admission: Dileep Watson MD Consults: 10/30/16 03:19 Consult to Case Mgmt/Social Srvs [CONS] Routine Reason for Case Mgmt/Social Srvs: Discharge Planning Consult to Physician [CONS] Routine Comment: Bradycardia/heart block Consulting Provider: Valdez Francis When should Consulting Provider be notified: Now Discharging clinician: Irene Hernandez MD
--- NOTE | 2016-10-30 17:26 | Cardiology Operative Report ---
Date of Procedure:: 10/30/16 Pre-op diagnosis: Complete heart block with severe bradycardia as escape rhythm and bradycard Post-op diagnosis: other (Status post successful dual-chamber pacemaker placement and prolonged QT interval) Procedure: After signed informed consent was taken from the patient and antibiotics given timeout recorded in the patient was prepped and draped in a: 1% lidocaine was infiltrated in the skin and subcutaneous tissue overlying the left subclavian vein. A venogram was performed. Seldinger technique was utilized with a micropuncture needle to obtain access to the left subclavian vein. The micropuncture wire then through the micropuncture sheath was upsized to an 035 J -wire. Additional lidocaine was given and a #11 blade was used to make the pocket. Electrocautery was used for hemostasis and dissection to the pectoralis fascia. Once the pectoralis fascia was reached blunt dissection inferiorly was used to make a pocket. Anabolic sponge was placed in the pocket. At this time blunt dissection superiorly to pull the 035 J-wire back into the pocket was performed. Now a second access more laterally was obtained with Seldinger technique from the pocket utilizing the micropuncture wire sheath and 035 J-wire as described above. At this time a 7 English peel-away sheath was placed over the more medial wire and the ventricular lead was advanced through this sheath into the apex of the right ventricle and actively fixed. The lead was interrogated and tested for 10 V output to ensure no diaphragmatic stimulation. Slack was good and the sheath was peeled away. At this time an 2-0 Ethibond was used to secure the lead to the pectoralis fascial over the anchor sleeve. The stylette was removed and slight was demonstrated to be good. At this time attention was turned to the atrial lead. A 7 English sheath was placed over the remaining 035 J-wire and the atrial lead was advanced into the inferior vena cava straight stylet was exchanged for a J stylette and the right reach with a J stylette it was actively fixed the stylette was removed. The lead was connected for interrogation. Numbers were all acceptable there was no diaphragmatic stimulation with 10 V. Sheath was peeled away the lead was then sewn to the pectoralis fascia over the suture sleeve in the same fashion. Finally a pursestring suture was placed around both leads. The anabolic sponge that had been previously placed in the pocket was removed. The rocket was flushed with antibiotics solution ensure hemostasis. The ventricular and atrial leads were then attached to the generator device as the serial numbers were called to the [employer] passenger service representative. Sponge and instrument count were demonstrated to be correct AV sequential pacing was noted on the monitor the and at the device was placed in the pocket and sewn to the pectoralis fascial with 2-0 Ethibond. The sponge and instument count were again verified to be correct the deep tissue layers were closed with 3-0 Vicryl followed by running 4-0 Vicryl in a subcuticular stitch. Dermabond was applied followed by a row of Steri-Strips and Mepilex dressing. The patient awakened from conscious sedation administered during the case without difficulty. Total IV conscious sedation: Versed: 1 mg Fentanyl: 25 mcg Implants: Device: kubo financ[employer] JIM POTTER [id number] Serial number: [id number] Right Atrial lead: [employer] 5076-52 Serial number: [id number] Impedance: 597 ohms P waves: 3.0 mV Threshold: 0.3 V Right Ventricular lead: [employer] 5076-58 Serial number [id number] Impedance 967 ohms R waves 9.0 mV Threshold: 0.9 V Anesthesia: moderate conscious sedation Surgeon / Physician: Justine Bennett Front Desk Auxiliary: none Estimated blood loss: none Specimens: none sent Condition: stable Disposition: floor
--- NOTE | 2016-10-30 18:16 | XRay Report ---
XR chest 1V portable Indication: Lead placement. Comparison: Chest x-ray October 29, 2016. Technique: Portable AP chest was performed. Findings: Heart size is borderline to minimally enlarged. Cardiac pacemaker appears stable. Pulmonary vasculature appears within normal limits. No significant abnormality of the mediastinal contours demonstrated. Lungs are clear. Bones and soft tissues demonstrate no significant abnormalities. Impression: 1. No evidence of acute pathology. 10/30/2016 6:13 PM PROCEDURE INTERPRETED AT [facility] DEPARTMENT OF RADIOLOGY Final Report Signed by: Dr. Paramjit Reardon
[2016-10-30 20:09] LABS: Troponin I Only 0.218 NG/ML (0.00-0.045)
[2016-10-30] MEDS ORDERED: AMITRIPTYLINE 50 MG TABLET PO SCH (21:00)
[2016-10-30] MEDS ORDERED: INSULIN GLARGINE 100 UNIT/ML SUBCUT SCH (21:00)
[2016-10-30] MEDS: NITROFURANTOIN MACRO/MONO 100 MG CAPSULE PO SCH (21:21)
[2016-10-30] MEDS: MAGNESIUM OXIDE 400 MG TABLET PO SCH (21:22)
[2016-10-31 03:06] LABS: Basophils % 0.5 % (0.0-0.8); Eosinophils # 0.4 10*3/uL (0.0-0.87); Eosinophils % 6.1 % (0.00-10.9); Hematocrit 32.1 VOL% (35.7-47.0); Hemoglobin 10.5 GM/DL (12.0-16.0); Immature Granulocytes % 0.3 %; Immature Granulocytes Absolute 0.02 #; Lymphocytes # 1.8 10*3/uL (1.4-4.0); Lymphocytes % 29.7 % (21.3-54.2); Mean Corpuscular HGB Conc 32.7 GM/DL (32-36); Mean Corpuscular Hemoglobin 30 PG (27-34); Mean Corpuscular Volume 91.5 FL (87-102); Mean Platelet Volume 10.3 FL (9.6-12.0); Monocytes # 0.4 10*3/uL (0.11-0.8); Neutrophils # 3.3 10*3/uL (1.4-7.4); Neutrophils % 56.4 % (38.7-73.9); Platelet Count 212 T/CUMM (130-400); Red Blood Count 3.51 MC/CUMM (3.8-5.5); Red Cell Distribution Width 13.2 % (9.3-17.3); White Blood Count 5.9 T/CUMM (4-12)
[2016-10-31 03:31] LABS: Calcium 8.2 MG/DL (8.5-10.1); Potassium 3.8 MMOL/L (3.5-5.1)
[2016-10-31 03:46] LABS: Troponin I Only 0.282 NG/ML (0.00-0.045)
--- NOTE | 2016-10-31 07:08 | Event Note ---
I saw and examined the patient this morning I reviewed removed her pressure dressing from her pacer site. I reviewed her chest x-ray. Chest x-ray looks good lead slack is good and the 2 leads. Her pacer interrogation is pending however she is paced on the surveillance monitor. Nothing further to add at this point. If her pacer interrogation is good from my standpoint she may be discharged. Follow-up with me in the clinic in 1 week. I gave her instructions to leave her dressing on until tomorrow evening and then remove it keep the area dry and be compliant with wearing her shoulder immobilizer until she follows up with me. I discussed with her primary supervisor byproducts and she will be turned over to Dr. Almaguer once the acute issues around her pacer have been resolved.
--- NOTE | 2016-10-31 07:29 | EKG Report ---
Stationary ECG Study [facility] Test Date: 10/31/2016 7:28:25 AM Pat Name: NABILA BLACK Department: Room: 276 Gender: F Tiller Worker: SRINIVAS : [id number] Requested by: Bety Brown Order Number: [id number] Reading MD: MADAI MADRID Intervals [place] Rate: 81 P: 50 IN: 200 QRS: 98 QRSD: 164 T: -62 QT: 451 QTc: 489 Interpretive Statements ELECTRONIC VENTRICULAR PACEMAKER NORMAL SINUS RHYTHM Electronically Signed On 10-31-16 15:56:44 CDT by MADAI MADRID [email or web address]
[2016-10-31] MEDS: FUROSEMIDE 20 MG TABLET PO SCH (08:51)
[2016-10-31] MEDS: BENAZEPRIL 10 MG TABLET PO SCH (08:51)
[2016-10-31] MEDS: DOCUSATE SODIUM 100 MG CAPSULE PO SCH (08:51)
[2016-10-31] MEDS: FAMOTIDINE 20 MG TABLET PO SCH (08:51)
[2016-10-31] MEDS: ATORVASTATIN 10 MG TABLET PO SCH (08:51)
[2016-10-31] MEDS: MELOXICAM 7.5 MG TABLET PO SCH (08:51)
[2016-10-31] MEDS: NITROFURANTOIN MACRO/MONO 100 MG CAPSULE PO SCH (08:52)
[2016-10-31] MEDS: PANTOPRAZOLE 40 MG VIAL IV SCH (08:52)
[2016-10-31] MEDS: ASPIRIN EC 81 MG TABLET PO SCH (08:52)
[2016-10-31] MEDS: POTASSIUM CHLORIDE 10 MEQ TABLET PO SCH (08:52)
[2016-10-31] MEDS: MAGNESIUM OXIDE 400 MG TABLET PO SCH (08:52)
[2016-10-31] MEDS ORDERED: MAGNESIUM OXIDE 400 MG TABLET PO SCH (09:00)
--- NOTE | 2016-10-31 09:16 | XRay Report ---
XR chest 2V Date: 10/31/2016 4:00 AM History: Lead placement Comparison: 10/30/2016 Technique: PA and lateral chest Findings: The heart is minimally enlarged with stable left subclavian atrioventricular prominent pacemaker. No pneumothorax. The lungs are clear with unremarkable mediastinum. Degenerative changes are noted. Impression: Stable left subclavian atrioventricular permanent pacemaker with no pneumothorax. PROCEDURE INTERPRETED AT [facility] DEPARTMENT OF RADIOLOGY Final Report Signed by: Dr. Agueda Kline
[2016-10-31] MEDS: INSULIN REGULAR 100 UNIT/ML SUBCUT SCH (09:35)
--- NOTE | 2016-10-31 10:50 | Cardiology Progress Note ---
Assessment and Plan - Time spent with patient Time spent with patient: Greater than 30 minutes (1) Near syncope Status: Resolved Assessment and plan: SEE PLAN OF CARE LISTED BELOW Current Visit: Yes (2) Hypertension Status: Chronic Assessment and plan: SEE PLAN OF CARE LISTED BELOW Current Visit: Yes (3) Third degree heart block Status: Resolved Assessment and plan: SEE PLAN OF CARE LISTED BELOW Current Visit: Yes (4) Dyslipidemia Status: Chronic Assessment and plan: SEE PLAN OF CARE LISTED BELOW Current Visit: Yes (5) Diabetes Status: Chronic Assessment and plan: SEE PLAN OF CARE LISTED BELOW Current Visit: Yes Qualifiers: Diabetes mellitus type: type 2 (6) UTI (urinary tract infection) Status: Acute Assessment and plan: SEE PLAN OF CARE LISTED BELOW Current Visit: Yes (7) Pacemaker Status: Chronic Assessment and plan: SEE PLAN OF CARE LISTED BELOW Current Visit: Yes Cardiology - PN: Subj Interval history: [employer]: DR. ALMAGUER PCP: DR. WATSON OCTOBER 30, 2016: Ms. Olmos, 81BF, routinely followed by Dr. Almaguer. Last seen in cardiology clinic May 01, 2016. Risk factors include: Advanced age, hypertension, diabetes, dyslipidemia. Cardiolite stress test March 24, 2016: Suggestive of low to moderate risk, EF 45%. Echocardiogram May 01, 2016: EF 45 % to 55%, grade 1 diastolic dysfunction, mild to moderate MR, PAP 26 mmHg assuming RAP 3 mmHg. Trace to small pericardial effusion, 2+ upper septal thickness. Patient was referred to Dr. Almaguer for workup of syncope spring 2016. No obvious cardiology's source was identified. Today, patient reported to the emergency department after her home health nurse was concern regarding her significantly low heart rate. She was found to be in third-degree heart block. As she was getting prepared for dual-chamber pacemaker, experienced brief torsades spontaneously converting back to complete heart block. She then underwent the following: Implants: Device: [employer] MRI [id number] Serial number: [id number] Atrial lead: Medtronic 5076-52 Serial number: [id number] Impedance: 597 ohms P waves: 3.0 mV Threshold: 0.3 V Right Ventricular lead: Medtronic 5076-58 Serial number [id number] Impedance 967 ohms R waves 9.0 mV Threshold: 0.9 V She tolerated this procedure well without complication was returned to our telemetry unit in stable condition. 2016: Overnight, patient has done well. Device has been interrogated and found to be working appropriately. Chest x-ray is stable. Dr. Beverly has seen and evaluated patient as well. A cardiology standpoint, patient is stable for discharge home. She will be given a one-week follow-up in clinic for reinterrogation of her pacemaker with Dr. Bennett. Then a one- month follow-up, appointment with Dr. Almaguer. At that visit with Dr. Bennett the following will be obtained, BMP, magnesium, CBC. Recommended cardiac discharge medications include the following: Aspirin 81 mg orally daily Lasix 60 mg orally daily Magnesium oxide 400 mg orally 3 times daily Potassium chloride 10 mEq orally twice daily Toprol-XL 25 mg orally daily (new) Lipitor 10 mg orally each evening Benazepril 5 mg orally daily ASSESSMENT/PLAN: 1. COMPLETE HEART BLOCK WITH TORSADES - S/P PPM implantations. 2. SYNCOPE/NEAR SYNCOPE - symptoms most likely related to #1 3. DIZZINESS - symptoms most likely related to #1. Now improved. 4. HYPERTENSION - adequately controlled. Added low dose Toprol. 5. DYSLIPIDEMIA - continue lipid-lowering agent, LDL 48 6. DIABETES - Resume home meds. 7. UTI - Antibiotics. Macrobid BID for seven days. 8. S/P PPM IMPLANTATION - functioning appropriately Exam (Progress Note) - Constitutional Vitals: Period Temp Pulse Resp BP Sys/Walsh Pulse Ox Last 24 Hr 96.9 F-97.9 F 40-93 16-20 111-155/62-92 93-100 Exam: General: [Appears well with no apparent distress.] [Pleasant and cooperative. ] [Appears comfortable.] HEENT: [PERRL, normocephalic, atraumatic. Mucous membranes moist. No jaundice noted. Conjunctiva moist and clear, sclerae anicteric] Neck: No JVD/HJR, no thyromegaly or lymphadenopathy noted. No carotid bruit appreciated Cardiac: [Regular rate and rhythm.] [No murmur rub or gallop.] Left precordial area without significant hematoma. Left arm in sling . Lungs: [Clear to auscultation without accessory muscle use to assist the respiratory pattern.] Not requiring oxygen Abdomen: Soft, bowel sounds normoactive. Nontender and nondistended. No abdominal bruit or thrill noted. No masses noted. Musculoskeletal: No fluid collection. Decreased range of motion is noted. Extremities: No clubbing, cyanosis noted. [ No edema noted.] Upper extremity pulses 2+. Lower extremity pulses 2+. Capillary refill less than 3 seconds. Skin: No unusual lesions or rashes. No skin breakdown appreciated. Neuro: Awake, alert and oriented 3. Moves all extremities well without hemiparesis or paralysis. No essential tremor is appreciated. Result/EKG - Labs CBC & BMP: 10/31/16 02:37 10/31/16 02:37 Lab Results: I have reviewed the past 24 hour labs Labs: Laboratory Results - last 24 hr 10/30/16 10/30/16 10/30/16 11:54 12:30 12:34 WBC RBC Hgb Hct MCV MCH MCHC RDW Plt Count MPV Neut % (Auto) Lymph % (Auto) [place] % (Auto) Eos % (Auto) Baso % (Auto) Neut # (Auto) Lymph # (Auto) [place] # (Auto) Eos # (Auto) Baso # (Auto) Immature Gran % Nucleated RBC % Immature Gran # Nucleated RBCs # Immature Plt Fraction Sodium Potassium Chloride Carbon Dioxide Anion Gap BUN Creatinine GFR Calculation BUN/Creatinine Ratio Glucose POC Glucose 168 H 150 H Calculated Osmolality Calcium Magnesium Total Creatine Kinase 58 CK-MB (CK-2) < 1.0 Troponin I 0.146 H D 10/30/16 10/30/16 10/31/16 17:53 19:02 02:37 WBC 5.9 RBC 3.51 L Hgb 10.5 L Hct 32.1 L MCV 91.5 MCH 30 MCHC 32.7 RDW 13.2 Plt Count 212 MPV 10.3 Neut % (Auto) 56.4 Lymph % (Auto) 29.7 Harding % (Auto) 7.0 Eos % (Auto) 6.1 Baso % (Auto) 0.5 Neut # (Auto) 3.3 Lymph # (Auto) 1.8 Harding # (Auto) 0.4 Eos # (Auto) 0.4 Baso # (Auto) 0.0 Immature Gran % 0.3 Nucleated RBC % 0.0 Immature Gran # 0.02 Nucleated RBCs # 0.00 Immature Plt Fraction 0.0 Sodium Potassium Chloride Carbon Dioxide Anion Gap BUN Creatinine GFR Calculation BUN/Creatinine Ratio Glucose POC Glucose 96 Calculated Osmolality Calcium Magnesium Total Creatine Kinase 59 CK-MB (CK-2) < 1.0 Troponin I 0.218 H D 10/31/16 10/31/16 10/31/16 02:37 02:37 02:37 WBC RBC Hgb Hct MCV MCH MCHC RDW Plt Count MPV Neut % (Auto) Lymph % (Auto) [place] % (Auto) Eos % (Auto) Baso % (Auto) Neut # (Auto) Lymph # (Auto) [place] # (Auto) Eos # (Auto) Baso # (Auto) Immature Gran % Nucleated RBC % Immature Gran # Nucleated RBCs # Immature Plt Fraction Sodium 143 Potassium 3.8 Chloride 107 Carbon Dioxide 30 Anion Gap 9.8 BUN 15 Creatinine 0.80 GFR Calculation 89 BUN/Creatinine Ratio 18.00 Glucose 185 H POC Glucose Calculated Osmolality 290.0 Calcium 8.2 L Magnesium 1.8 Total Creatine Kinase 60 CK-MB (CK-2) < 1.0 Troponin I 0.282 H D 10/31/16 08:50 WBC RBC Hgb Hct MCV MCH MCHC RDW Plt Count MPV Neut % (Auto) Lymph % (Auto) [place] % (Auto) Eos % (Auto) Baso % (Auto) Neut # (Auto) Lymph # (Auto) [place] # (Auto) Eos # (Auto) Baso # (Auto) Immature Gran % Nucleated RBC % Immature Gran # Nucleated RBCs # Immature Plt Fraction Sodium Potassium Chloride Carbon Dioxide Anion Gap BUN Creatinine GFR Calculation BUN/Creatinine Ratio Glucose POC Glucose 150 H Calculated Osmolality Calcium Magnesium Total Creatine Kinase CK-MB (CK-2) Troponin I - EKG EKG results: interpreted by me EKG shows: sinus rhythm (Pacing) Quality Measures - VTE Contraindication to Pharmacological VTE Prophylaxis: High Risk of Bleeding Specialty Discharge - Follow Up or Referrals Follow up with: Dileep Watson MD [Physician] - 2 Weeks (on macrobid for UTI, urine cx pending ) Justine Bennett DO [Physician] - 11/07/16 8:00 am (BMP, magnesium, CBC. And device interrogation) Jacky Almaguer MD [Physician] - (1 month)
[2016-10-31 11:53] VITALS: BP 165/77
[2016-11-01] MEDS ORDERED: METOPROLOL SUCCINATE XL 25 MG TABLET PO SCH (09:00)
== END 2016-10-31 12:00 | disposition home health service (06) | DRG 243 ==
LOC: N.EDINP 18:39 → N.ED 18:39 → N.TELES 18:39 → OBSVTOIN 10-30 08:57 → N.TELES 10-30 12:03
PROVIDERS: ADMIT Internal Medicine; ATTEND Internal Medicine

== ENCOUNTER 2017-04-09 16:15 | Observation (INO) ==
[2017-04-09] MEDS ORDERED: diphenhydrAMINE CAP 25 MG CAPSULE PO PRN (16:37)
[2017-04-09] MEDS ORDERED: ONDANSETRON 4 MG/2 ML VIAL IV PRN (16:37)
[2017-04-09] MEDS ORDERED: MAGNESIUM SULF RIDER 2 GM in PREMIX 1 EACH IV PRN (16:37)
[2017-04-09] MEDS ORDERED: ZALEPLON 5 MG CAPSULE PO PRN (16:37)
[2017-04-09] MEDS ORDERED: DOCUSATE SODIUM 100 MG CAPSULE PO PRN (16:37)
[2017-04-09] MEDS ORDERED: BISACODYL 5 MG TABLET PO PRN (16:37)
[2017-04-09] MEDS ORDERED: MAGNESIUM SULF RIDER 4 GM in PREMIX 1 EACH IV PRN (16:37)
[2017-04-09 18:51] LABS: Troponin I Only 0.669 NG/ML (0.00-0.045)
[2017-04-09] MEDS: PANTOPRAZOLE 40 MG TABLET PO SCH (18:52)
[2017-04-09 20:34] LABS: Troponin I Only 0.629 NG/ML (0.00-0.045)
[2017-04-09 22:52] LABS: Troponin I Only 0.609 NG/ML (0.00-0.045)
[2017-04-10] MEDS ORDERED: METHOCARBAMOL 750 MG TABLET PO PRN (03:51)
[2017-04-10] MEDS: ACETAMINOPHEN 325 MG TABLET PO PRN (05:13)
[2017-04-10 06:18] LABS: Albumin 3.6 G/DL (3.4-5.0); Bilirubin,Total 0.8 MG/DL (0.2-1.0); Calcium 8.7 MG/DL (8.5-10.1); Osmolality,Calculated 285.4 MOS/KG (273-304); Potassium 3.8 MMOL/L (3.5-5.1); Total Protein 6.1 G/DL (6.4-8.3)
[2017-04-10] MEDS ORDERED: MAGNESIUM CITRATE 300 ML BOTTLE PO ONE (07:23)
[2017-04-10] MEDS ORDERED: DIAZEPAM 5 MG TABLET PO ONE (07:25)
[2017-04-10 07:36] LABS: Apearance,Urine Slightly Hazy (Clear); Bilirubin,Urine Negative (Negative); Blood, Urine Small mg/dL (Negative); Glucose,Urine (UA) Negative (Negative); Ketones,Urine Negative (Negative); Mucus,Urine Occasional /LPF (Occasional); Nitrite,Urine Negative (Negative); Protein,Urine Negative; RBC,Urine 8 /HPF (0-4); Squamous Epithelial Cell,Urine Occasional /HPF (0-10); Urine Color Yellow (Yellow); Urine Specific Gravity 1.015 (1.001-1.035); WBC,Urine 6 /HPF (0-6)
[2017-04-10] MEDS ORDERED: POTASSIUM CHLORIDE RIDER 10 MEQ in PREMIX 1 EACH IV PRN (07:40)
[2017-04-10] MEDS ORDERED: MAGNESIUM SULF RIDER 2 GM in PREMIX 1 EACH IV PRN (07:40)
[2017-04-10 08:22] LABS: Basophils % 0.2 % (0.0-0.8); Eosinophils # 0.1 10*3/uL (0.0-0.87); Eosinophils % 0.7 % (0.00-10.9); Hemoglobin 10.2 GM/DL (12.0-16.0); Immature Granulocytes % 0.6 %; Immature Granulocytes Absolute 0.05 #; Lymphocytes # 1.3 10*3/uL (1.4-4.0); Lymphocytes % 15.4 % (21.3-54.2); Mean Corpuscular Hemoglobin 28 PG (27-34); Mean Corpuscular Volume 93.2 FL (87-102); Monocytes # 0.7 10*3/uL (0.11-0.8); Neutrophils # 6.1 10*3/uL (1.4-7.4); Neutrophils % 75.1 % (38.7-73.9); Platelet Count 204 T/CUMM (130-400); Red Blood Count 3.65 MC/CUMM (3.8-5.5); Red Cell Distribution Width 16.4 % (9.3-17.3); White Blood Count 8.1 T/CUMM (4-12)
[2017-04-10] MEDS ORDERED: CARVEDILOL 6.25 MG TABLET PO SCH (09:00)
[2017-04-10] MEDS: POTASSIUM CHLORIDE 10 MEQ TABLET PO SCH ×2 (12:36→21:55)
[2017-04-10] MEDS ORDERED: HEPARIN/NACL 0.9% 2 UNITS/ML 2,000 ML IV ONE (13:28)
[2017-04-10] MEDS: PANTOPRAZOLE 40 MG TABLET PO SCH (13:28)
[2017-04-10] MEDS ORDERED: LIDOCAINE 1% 20 ML VIAL ONE (13:28)
[2017-04-10] MEDS: BENAZEPRIL 5 MG TABLET PO SCH (13:28)
[2017-04-10] MEDS: CARVEDILOL 12.5 MG TABLET PO SCH ×2 (13:29→21:55)
[2017-04-10] MEDS: ASPIRIN EC 81 MG TABLET PO SCH (13:29)
[2017-04-10] MEDS ORDERED: HYDROmorphone 2 MG/1 ML VIAL ONE (14:10)
[2017-04-10] MEDS ORDERED: MIDAZOLAM 2 MG/2 ML VIAL ONE (14:13)
[2017-04-10] MEDS: FUROSEMIDE 40 MG TABLET PO SCH (14:30)
[2017-04-10] MEDS: MAGNESIUM OXIDE 400 MG TABLET PO SCH (14:30)
[2017-04-10] MEDS: POLYETHYLENE GLYCOL POWDER 17 GM PACK PO SCH (14:30)
[2017-04-10] MEDS: ATORVASTATIN 10 MG TABLET PO SCH (14:30)
[2017-04-10] MEDS ORDERED: GLUCAGON 1 MG VIAL IM PRN (15:08)
[2017-04-10] MEDS ORDERED: DEXTROSE 50% 25 GM/50 ML VIAL IV PRN (15:08)
[2017-04-10] MEDS ORDERED: SODIUM CHLORIDE 0.9% 1,000 ML IV SCH (15:30)
[2017-04-10] MEDS: AMITRIPTYLINE 50 MG TABLET PO SCH (21:55)
[2017-04-11 05:06] LABS: Basophils % 0.3 % (0.0-0.8); Eosinophils # 0.1 10*3/uL (0.0-0.87); Eosinophils % 0.9 % (0.00-10.9); Hemoglobin 9.5 GM/DL (12.0-16.0); Immature Granulocytes % 0.4 %; Immature Granulocytes Absolute 0.03 #; Lymphocytes % 14.1 % (21.3-54.2); Mean Corpuscular HGB Conc 31.7 GM/DL (32-36); Mean Corpuscular Hemoglobin 28 PG (27-34); Mean Corpuscular Volume 89.3 FL (87-102); Monocytes # 0.6 10*3/uL (0.11-0.8); Monocytes % 8.4 % (1.7-12.7); NRBC # 0.02 10*3/uL; Neutrophils # 5.3 10*3/uL (1.4-7.4); Neutrophils % 75.9 % (38.7-73.9); Platelet Count 217 T/CUMM (130-400); Red Blood Count 3.36 MC/CUMM (3.8-5.5)
[2017-04-11 05:41] LABS: Calcium 8.4 MG/DL (8.5-10.1); Osmolality,Calculated 287.1 MOS/KG (273-304); Potassium 3.6 MMOL/L (3.5-5.1)
[2017-04-11] MEDS: POLYETHYLENE GLYCOL POWDER 17 GM PACK PO SCH (08:59)
[2017-04-11] MEDS: CARVEDILOL 12.5 MG TABLET PO SCH (09:00)
[2017-04-11] MEDS: BENAZEPRIL 5 MG TABLET PO SCH (09:00)
[2017-04-11] MEDS: POTASSIUM CHLORIDE 10 MEQ TABLET PO SCH (09:00)
[2017-04-11] MEDS: ATORVASTATIN 10 MG TABLET PO SCH (09:00)
[2017-04-11] MEDS: ASPIRIN EC 81 MG TABLET PO SCH (09:01)
[2017-04-11] MEDS: MAGNESIUM OXIDE 400 MG TABLET PO SCH (09:01)
[2017-04-11] MEDS: FUROSEMIDE 40 MG TABLET PO SCH (09:01)
[2017-04-11] MEDS: PANTOPRAZOLE 40 MG TABLET PO SCH (09:01)
[2017-04-11] MEDS: ACETAMINOPHEN 325 MG TABLET PO PRN (10:29)
[2017-04-11] MEDS ORDERED: ATORVASTATIN 80 MG TABLET PO SCH (10:34)
[2017-04-11] MEDS ORDERED: BISACODYL 5 MG TABLET PO SCH (11:00)
[2017-04-11] MEDS: ISOSORBIDE MONONITRATE 30 MG TABLET PO SCH (11:07)
[2017-04-11] MEDS: SPIRONOLACTONE 25 MG TABLET PO SCH (11:08)
[2017-04-11] MEDS: hydrALAZINE 25 MG TABLET PO SCH (20:09)
[2017-04-11] MEDS: CARVEDILOL 25 MG TABLET PO SCH (20:09)
[2017-04-11] MEDS: AMITRIPTYLINE 50 MG TABLET PO SCH (20:09)
[2017-04-11] MEDS ORDERED: INSULIN GLARGINE 100 UNIT/ML SUBCUT SCH (21:30)
[2017-04-11] MEDS: INSULIN REGULAR 100 UNIT/ML SUBCUT SCH (21:59)
[2017-04-12 04:34] LABS: Basophils % 0.3 % (0.0-0.8); Eosinophils # 0.2 10*3/uL (0.0-0.87); Eosinophils % 2.5 % (0.00-10.9); Hematocrit 30.6 VOL% (35.7-47.0); Hemoglobin 9.5 GM/DL (12.0-16.0); Immature Granulocytes % 0.3 %; Immature Granulocytes Absolute 0.02 #; Lymphocytes # 1.2 10*3/uL (1.4-4.0); Lymphocytes % 18.9 % (21.3-54.2); Mean Corpuscular Hemoglobin 28 PG (27-34); Mean Platelet Volume 11.2 FL (9.6-12.0); Monocytes # 0.5 10*3/uL (0.11-0.8); Monocytes % 7.5 % (1.7-12.7); Neutrophils # 4.6 10*3/uL (1.4-7.4); Neutrophils % 70.5 % (38.7-73.9); Platelet Count 215 T/CUMM (130-400); Red Cell Distribution Width 15.8 % (9.3-17.3); White Blood Count 6.5 T/CUMM (4-12)
[2017-04-12 05:09] LABS: Calcium 8.7 MG/DL (8.5-10.1); Osmolality,Calculated 284.4 MOS/KG (273-304); Potassium 3.5 MMOL/L (3.5-5.1)
[2017-04-12] MEDS: INSULIN REGULAR 100 UNIT/ML SUBCUT SCH ×3 (07:57→16:34)
[2017-04-12] MEDS: POLYETHYLENE GLYCOL POWDER 17 GM PACK PO SCH (09:08)
[2017-04-12] MEDS: hydrALAZINE 25 MG TABLET PO SCH (09:10)
[2017-04-12] MEDS: PANTOPRAZOLE 40 MG TABLET PO SCH (09:10)
[2017-04-12] MEDS: ASPIRIN EC 81 MG TABLET PO SCH (09:10)
[2017-04-12] MEDS: SPIRONOLACTONE 25 MG TABLET PO SCH (09:10)
[2017-04-12] MEDS: MAGNESIUM OXIDE 400 MG TABLET PO SCH (09:10)
[2017-04-12] MEDS: ISOSORBIDE MONONITRATE 30 MG TABLET PO SCH (09:10)
[2017-04-12] MEDS: CARVEDILOL 25 MG TABLET PO SCH (09:10)
[2017-04-12] MEDS: FUROSEMIDE 40 MG TABLET PO SCH (09:11)
[2017-04-12] MEDS ORDERED: MAGNESIUM CITRATE 300 ML BOTTLE PO ONE (10:51)
[2017-04-12] MEDS ORDERED: LACTULOSE 20 GM/30 ML UDCUP PO SCH (11:00)
[2017-04-12] MEDS ORDERED: IBUPROFEN 600 MG TABLET PO PRN (19:22)
[2017-04-12] MEDS ORDERED: IBUPROFEN 200 MG TABLET PO PRN (19:30)
[2017-04-12 22:45] VITALS: BP 166/91
== END 2017-04-12 21:15 | disposition hospice, home (50) ==
LOC: N.TELES 17:42 → INTOOBSV 17:42
PROVIDERS: ADMIT Internal Medicine Cardiovascular Disease; ATTEND Internal Medicine Cardiovascular Disease